=== PATIENT | female | born 1990 | race Caucasian/White ===

== ENCOUNTER 2020-05-06 15:00 | Observation (INO) | payer BC, OTHER ==
[2020-05-06 16:16] LABS: CHLORIDE,CL 94 mmol/L (98-107); SODIUM,NA 129 mmol/L (136-145)
[2020-05-06] MEDS ORDERED: Sodium Chloride 0.9% 10 ML Syringe FLUSH PRN (16:43)
[2020-05-06] MEDS ORDERED: oxyCODONE 5 MG Tab PO PRN (16:54)
--- NOTE | 2020-05-06 17:00 | PCM.HP.2 ---
<Neelam Houser - Last Filed: 05/06/20 16:55> H&P History of Present Illness - General Date of Service: 05/06/20 Admit Problem/Dx: Admission Diagnosis/Problem Admission Diagnosis/Problem Hyponatremia Source of Information: Patient, Other (CLINIC RECORDS) History Limitations: Reports: No Limitations - History of Present Illness Initial Comments - Free Text/Narative: Patient presented to the clinic this afternoon with complaints of right sided flank pain. Symptoms started Sunday evening with increased sweating and not feeling well. She had breast augmentation surgery on 04/22/20 and has been doing well. She had a post-op follow-up appointment and the the surgeon was pleased. She denies any redness, discharge or tenderness around the surgical incisions. Patient is worried that this could be sepsis. She denies any fever, vomiting or diarrhea. She has been drinking but her appetite is greatly decreased and she feels nauseated at times. The flank pain is intermittent. No personal history of kidney stones but her mom gets them. She is typically healthy. Quality: Reports: Sharp (right flank pain) - Related Data Home Medications: Home Meds Ibuprofen [Motrin] 800 mg PO TID PRN 05/06/20 [History] Past Medical History Neurological History: Reports: Migraines - Past Surgical History Female Surgical History: Reports: Breast Implant Social & Family History - Tobacco Use Smoking Status *Q: Former Smoker H&P Review of Systems - Review of Systems: Review Of Systems: See Below General: Reports: Chills, Malaise, Fatigue, Diaphoresis. Denies: Fever HEENT: Reports: No Symptoms Pulmonary: Reports: No Symptoms Cardiovascular: Reports: No Symptoms Gastrointestinal: Reports: Abdominal Pain, Decreased Appetite. Denies: Diarrhea Genitourinary: Reports: Hematuria, Flank Pain. Denies: Dysuria, Frequency, Burn ing, Pain Musculoskeletal: Reports: No Symptoms Skin: Reports: No Symptoms Psychiatric: Reports: No Symptoms Neurological: Reports: No Symptoms Hematologic/Lymphatic: Reports: No Symptoms Immunologic: Reports: No Symptoms Exam - Exam Exam: See Below - Exam General: Alert, Oriented, 4 HEENT: PERRLA, Hearing Intact, Mucosa Moist & [place], Nares Patent, Normal Nasal Septum, Posterior Pharynx Clear, Conjunctiva Clear, EOMI, EACs Clear, TMs Clear Neck: Supple, Trachea Midline, 2 Lungs: Clear to Auscultation, Normal Respiratory Effort Cardiovascular: Regular Rate, Regular Rhythm GI/Abdominal Exam: Normal Bowel Sounds, Soft, Tender (right sided) (Female) Exam: Deferred Rectal (Female) Exam: Deferred Back Exam: No: CVA Tenderness (L), CVA Tenderness (R) Extremities: Normal Inspection, Non-Tender, No Pedal Edema Skin: Incision (surgical breast incisions are without erythema, discharge or te nderness) Neurological: Cranial Nerves Intact, Reflexes Equal Bilateral Neuro Extensive - Mental Status: Alert, Oriented x3, Normal Mood/Affect, Normal Cognition Psychiatric: Alert, Normal Affect, Normal Mood - Patient Data Lab Results Last 24 hrs: Laboratory Results - last 24 hr 05/06/20 05/06/20 05/06/20 Range/Units 15:15 15:38 15:38 WBC 13.1 H (4.0-10.2) K/uL RBC 4.52 (3.77-5.09) M/uL Hgb 13.4 (11.7-15.5) g/dL Hct 39.7 (34.0-46.0) % MCV 87.8 (84.0-98.0) fL MCH 29.6 (28.2-33.3) pg MCHC 33.8 (31.7-36.0) g/dL RDW 13.0 (11.2-14.1) % Plt Count 47 L* (150-350) K/uL Neut % (Auto) 89.9 H (45.0-80.0) % Lymph % (Auto) 6.7 L (10.0-50.0) % [place] % (Auto) 2.5 (2.0-14.0) % Eos % (Auto) 0.7 (0.0-5.0) % Baso % (Auto) 0.2 (0.0-2.0) % Neut # (Auto) 11.78 H (1.40-7.00) K/uL Lymph # (Auto) 0.88 (0.50-3.50) K/uL Marshall # (Auto) 0.33 (0.00-1.00) K/uL Eos # (Auto) 0.09 (0.00-0.50) K/uL Baso # (Auto) 0.02 (0.00-0.20) K/uL Sodium 129 L (136-145) mmol/L Potassium 3.5 (3.5-5.1) mmol/L Chloride 94 L (98-107) mmol/L Carbon Dioxide 26.6 (21.0-32.0) mmol/L BUN 6 L (7-18) mg/dL Creatinine 0.66 (0.51-1.17) mg/dL Est Cr Clr Drug Dosing TNP Estimated GFR (MDRD) > 60 mL/min Glucose 89 (74-106) mg/dL Lactic Acid (0.4-2.0) mmol/L Calcium 9.1 (8.5-10.1) mg/dL Total Bilirubin 0.8 (0.2-1.0) mg/dL AST 29 (15-37) U/L ALT 21 (12-78) U/L Alkaline Phosphatase 81 (46-116) IU/L Total Protein 8.6 H (6.4-8.2) g/dL Albumin 3.6 (3.4-5.0) g/dL Specimen Type Urinvoid Urine Color Ambika Urine Appearance Cloudy Urine pH 6.0 (5.0-9.0) Ur Specific [place] >= 1.030 (1.005-1.030) Urine Protein >=300 H (NEGATIVE) mg/dL Urine Glucose (UA) Negative (NEGATIVE) mg/dL Urine Ketones 15 H (NEGATIVE) mg/dL Urine Occult Blood Large H (NEGATIVE) Urine Nitrite Negative (NEGATIVE) Urine Bilirubin Small H (NEGATIVE) Urine Urobilinogen 1.0 (0.2-1.0) E.U./dL Ur Leukocyte Esterase Negative (NEGATIVE) Urine RBC See note /HPF Urine WBC See note /HPF Ur Epithelial Cells Many H /LPF Urine Bacteria See note (NONE TO FEW) /HPF Urinalysis Comment Urine HCG, Qual 05/06/20 05/06/20 Range/Units 15:38 15:52 WBC (4.0-10.2) K/uL RBC (3.77-5.09) M/uL Hgb (11.7-15.5) g/dL Hct (34.0-46.0) % MCV (84.0-98.0) fL MCH (28.2-33.3) pg MCHC (31.7-36.0) g/dL RDW (11.2-14.1) % Plt Count (150-350) K/uL Neut % (Auto) (45.0-80.0) % Lymph % (Auto) (10.0-50.0) % Marshall % (Auto) (2.0-14.0) % Eos % (Auto) (0.0-5.0) % Baso % (Auto) (0.0-2.0) % Neut # (Auto) (1.40-7.00) K/uL Lymph # (Auto) (0.50-3.50) K/uL Marshall # (Auto) (0.00-1.00) K/uL Eos # (Auto) (0.00-0.50) K/uL Baso # (Auto) (0.00-0.20) K/uL Sodium (136-145) mmol/L Potassium (3.5-5.1) mmol/L Chloride (98-107) mmol/L Carbon Dioxide (21.0-32.0) mmol/L BUN (7-18) mg/dL Creatinine (0.51-1.17) mg/dL Est Cr Clr Drug Dosing Estimated GFR (MDRD) mL/min Glucose (74-106) mg/dL Lactic Acid 1.0 (0.4-2.0) mmol/L Calcium (8.5-10.1) mg/dL Total Bilirubin (0.2-1.0) mg/dL AST (15-37) U/L ALT (12-78) U/L Alkaline Phosphatase (46-116) IU/L Total Protein (6.4-8.2) g/dL Albumin (3.4-5.0) g/dL Specimen Type Urine Color Urine Appearance Urine pH (5.0-9.0) Ur Specific [place] (1.005-1.030) Urine Protein (NEGATIVE) mg/dL Urine Glucose (UA) (NEGATIVE) mg/dL Urine Ketones (NEGATIVE) mg/dL Urine Occult Blood (NEGATIVE) Urine Nitrite (NEGATIVE) Urine Bilirubin (NEGATIVE) Urine Urobilinogen (0.2-1.0) E.U./dL Ur Leukocyte Esterase (NEGATIVE) Urine RBC /HPF Urine WBC /HPF Ur Epithelial Cells /LPF Urine Bacteria (NONE TO FEW) /HPF Urinalysis Comment Urine HCG, Qual Negative Result Diagrams: 05/06/20 15:38 05/06/20 15:38 - Problem List (1) Hyponatremia SNOMED Code(s): 09080848 ICD Code: E87.1 - HYPO-OSMOLALITY AND HYPONATREMIA Status: Acute Priority: High Current Visit: Yes Problem Details: Patient being referred to observation for hypertonic solution at 40ml/hr to correct the sodium level. Will recheck labs in the morning and if corrected will infuse normal saline. (2) Right flank pain SNOMED Code(s): 198904974 ICD Code: R10.9 - UNSPECIFIED ABDOMINAL PAIN Status: Acute Priority: High Current Visit: Yes Problem Details: CT abd/pelvis without contrast ordered for 05/07/20 to rule out kidney stones Problem List Initiated/Reviewed/Updated: Yes Orders Last 24hrs: Active Orders 24 hr Category Date Time Status Patient Status [ADT] Routine ADT 05/06/20 16:43 Ordered May Shower [RC] ASDIRECTED Care 05/06/20 16:43 Ordered Oxygen Therapy [RC] PRN Care 05/06/20 16:43 Ordered Peripheral IV Care [RC] . DIRECTED Care 05/06/20 16:48 Ordered Up ad Wendi [RC] ASDIRECTED Care 05/06/20 16:43 Ordered VTE/DVT Education [RC] PER UNIT ROUTINE Care 05/06/20 16:43 Ordered Vital Signs [RC] Q4H Care 05/06/20 16:43 Ordered Regular Diet [DIET] Diet 05/06/20 Dinner Ordered Abdomen Pelvis wo Cont [CT] Routine Exams 05/07/20 05:11 Ordered BASIC METABOLIC PANEL,BMP [CHEM] Routine Lab 05/07/20 05:11 Ordered CBC WITH AUTO DIFF [HEME] Routine Lab 05/07/20 05:11 Ordered UA W/MICROSCOPIC [URIN] Routine Lab 05/06/20 16:43 Ordered Acetaminophen [TylenoL] Med 05/06/20 16:43 Ordered 650 mg PO Q4H PRN Ondansetron [Zofran ODT] Med 05/06/20 16:43 Ordered 4 mg PO Q6H PRN Sodium Chloride 0.9% [Saline Flush] Med 05/06/20 16:43 Ordered 10 ml FLUSH ASDIRECTED PRN Sodium Chloride 3% 500 ml Med 05/06/20 17:00 Ordered IV ASDIRECTED oxyCODONE Med 05/06/20 16:54 Ordered 5 mg PO Q6H PRN Peripheral IV Insertion Adult [OM.PC] Routine Oth 05/06/20 16:43 Ordered Resuscitation Status Routine Resus Stat 05/06/20 16:43 Ordered Medication Orders Acetaminophen (Tylenol) 650 mg PO Q4H PRN PRN Reason: Pain (Mild 1-3)/fever Sodium Chloride (Sodium Chloride 3%) 500 mls @ 40 mls/hr IV ASDIRECTED ANDREW Ondansetron HCl (Zofran Odt) 4 mg PO Q6H PRN PRN Reason: Nausea/Vomiting Sodium Chloride (Saline Flush) 10 ml FLUSH ASDIRECTED PRN PRN Reason: Keep Vein Open Assessment/Plan Comment:: Dr. Weiner called to discuss patient's case. Recommended admission to observation. She will be assuming care following admission. - Mortality Measure Prognosis:: Good <Jessica Wenier H - Last Filed: 05/06/20 19:41> H&P History of Present Illness - General Admit Problem/Dx: Admission Diagnosis/Problem Admission Diagnosis/Problem Hyponatremia Exam - Vital Signs Vital Signs: Last Vital Signs Temp 37.1 C 05/06/20 16:43 Pulse 101 H 05/06/20 16:43 Resp 18 05/06/20 16:43 BP 117/72 05/06/20 16:43 Pulse Ox 94 L 05/06/20 16:43 - Patient Data Lab Results Last 24 hrs: Laboratory Results - last 24 hr 05/06/20 05/06/20 05/06/20 Range/Units 15:15 15:38 15:38 WBC 13.1 H (4.0-10.2) K/uL RBC 4.52 (3.77-5.09) M/uL Hgb 13.4 (11.7-15.5) g/dL Hct 39.7 (34.0-46.0) % MCV 87.8 (84.0-98.0) fL MCH 29.6 (28.2-33.3) pg MCHC 33.8 (31.7-36.0) g/dL RDW 13.0 (11.2-14.1) % Plt Count 47 L* (150-350) K/uL Neut % (Auto) 89.9 H (45.0-80.0) % Lymph % (Auto) 6.7 L (10.0-50.0) % [place] % (Auto) 2.5 (2.0-14.0) % Eos % (Auto) 0.7 (0.0-5.0) % Baso % (Auto) 0.2 (0.0-2.0) % Neut # (Auto) 11.78 H (1.40-7.00) K/uL Lymph # (Auto) 0.88 (0.50-3.50) K/uL [place] # (Auto) 0.33 (0.00-1.00) K/uL Eos # (Auto) 0.09 (0.00-0.50) K/uL Baso # (Auto) 0.02 (0.00-0.20) K/uL Sodium 129 L (136-145) mmol/L Potassium 3.5 (3.5-5.1) mmol/L Chloride 94 L (98-107) mmol/L Carbon Dioxide 26.6 (21.0-32.0) mmol/L BUN 6 L (7-18) mg/dL Creatinine 0.66 (0.51-1.17) mg/dL Est Cr Clr Drug Dosing TNP Estimated GFR (MDRD) > 60 mL/min Glucose 89 (74-106) mg/dL Lactic Acid (0.4-2.0) mmol/L Calcium 9.1 (8.5-10.1) mg/dL Total Bilirubin 0.8 (0.2-1.0) mg/dL AST 29 (15-37) U/L ALT 21 (12-78) U/L Alkaline Phosphatase 81 (46-116) IU/L Total Protein 8.6 H (6.4-8.2) g/dL Albumin 3.6 (3.4-5.0) g/dL Specimen Type Urinvoid Urine Color Ambika Urine Appearance Cloudy Urine pH 6.0 (5.0-9.0) Ur Specific [place] >= 1.030 (1.005-1.030) Urine Protein >=300 H (NEGATIVE) mg/dL Urine Glucose (UA) Negative (NEGATIVE) mg/dL Urine Ketones 15 H (NEGATIVE) mg/dL Urine Occult Blood Large H (NEGATIVE) Urine Nitrite Negative (NEGATIVE) Urine Bilirubin Small H (NEGATIVE) Urine Urobilinogen 1.0 (0.2-1.0) E.U./dL Ur Leukocyte Esterase Negative (NEGATIVE) Urine RBC See note /HPF Urine WBC See note /HPF Ur Epithelial Cells Many H /LPF Urine Bacteria See note (NONE TO FEW) /HPF Urinalysis Comment Urine HCG, Qual 05/06/20 05/06/20 05/06/20 Range/Units 15:38 15:52 17:52 WBC (4.0-10.2) K/uL RBC (3.77-5.09) M/uL Hgb (11.7-15.5) g/dL Hct (34.0-46.0) % MCV (84.0-98.0) fL MCH (28.2-33.3) pg MCHC (31.7-36.0) g/dL RDW (11.2-14.1) % Plt Count (150-350) K/uL Neut % (Auto) (45.0-80.0) % Lymph % (Auto) (10.0-50.0) % [place] % (Auto) (2.0-14.0) % Eos % (Auto) (0.0-5.0) % Baso % (Auto) (0.0-2.0) % Neut # (Auto) (1.40-7.00) K/uL Lymph # (Auto) (0.50-3.50) K/uL [place] # (Auto) (0.00-1.00) K/uL Eos # (Auto) (0.00-0.50) K/uL Baso # (Auto) (0.00-0.20) K/uL Sodium (136-145) mmol/L Potassium (3.5-5.1) mmol/L Chloride (98-107) mmol/L Carbon Dioxide (21.0-32.0) mmol/L BUN (7-18) mg/dL Creatinine (0.51-1.17) mg/dL Est Cr Clr Drug Dosing Estimated GFR (MDRD) mL/min Glucose (74-106) mg/dL Lactic Acid 1.0 (0.4-2.0) mmol/L Calcium (8.5-10.1) mg/dL Total Bilirubin (0.2-1.0) mg/dL AST (15-37) U/L ALT (12-78) U/L Alkaline Phosphatase (46-116) IU/L Total Protein (6.4-8.2) g/dL Albumin (3.4-5.0) g/dL Specimen Type [place] Urine Color Yellow Urine Appearance Clear Urine pH 6.5 (5.0-9.0) Ur Specific [place] 1.010 (1.005-1.030) Urine Protein 30 H (NEGATIVE) mg/dL Urine Glucose (UA) Negative (NEGATIVE) mg/dL Urine Ketones 40 H (NEGATIVE) mg/dL Urine Occult Blood Moderate H (NEGATIVE) Urine Nitrite Negative (NEGATIVE) Urine Bilirubin Negative (NEGATIVE) Urine Urobilinogen 0.2 (0.2-1.0) E.U./dL Ur Leukocyte Esterase Negative (NEGATIVE) Urine RBC 5-10 H /HPF Urine WBC 0-5 /HPF Ur Epithelial Cells Few /LPF Urine Bacteria Few (NONE TO FEW) /HPF Urinalysis Comment Urine HCG, Qual Negative Result Diagrams: 05/06/20 15:38 05/06/20 15:38 Sepsis Event Note - Focused Exam Vital Signs: Vital Signs Temp Pulse Resp BP Pulse Ox Pulse Ox 05/06/20 16:43 37.1 C 101 H 18 117/72 94 L 94 L - Problem List (1) Thrombocytopenia SNOMED Code(s): 227064893 ICD Code: D69.6 - THROMBOCYTOPENIA, UNSPECIFIED Status: Acute Priority: Medium Current Visit: Yes Problem Details: Observe. May need further evaluation by hematology. Orders Last 24hrs: Active Orders 24 hr Category Date Time Status Patient Status [ADT] Routine ADT 05/06/20 16:43 Active May Shower [RC] ASDIRECTED Care 05/06/20 16:43 Active Oxygen Therapy [RC] .PRN Care 05/06/20 16:43 Active Up ad Wendi [RC] ASDIRECTED Care 05/06/20 16:43 Active Vital Signs [RC] Q4HR Care 05/06/20 16:43 Active Regular Diet [DIET] Diet 05/06/20 Dinner Active Abdomen Pelvis wo Cont [CT] Routine Exams 05/07/20 05:11 Ordered BASIC METABOLIC PANEL,BMP [CHEM] Routine Lab 05/07/20 05:11 Ordered CBC WITH AUTO DIFF [HEME] Routine Lab 05/07/20 05:11 Ordered Acetaminophen [TylenoL] Med 05/06/20 16:43 Active 650 mg PO Q4H PRN Ondansetron [Zofran ODT] Med 05/06/20 16:43 Active 4 mg PO Q6H PRN Sodium Chloride 0.9% [Saline Flush] Med 05/06/20 16:43 Active 10 ml FLUSH ASDIRECTED PRN Sodium Chloride 3% 500 ml Med 05/06/20 17:00 Active IV ASDIRECTED oxyCODONE Med 05/06/20 16:54 Active 5 mg PO Q6H PRN Peripheral IV Insertion Adult [OM.PC] Routine Oth 05/06/20 16:43 Ordered Resuscitation Status Routine Resus Stat 05/06/20 16:43 Ordered Medication Orders Acetaminophen (Tylenol) 650 mg PO Q4H PRN PRN Reason: Pain (Mild 1-3)/fever Sodium Chloride (Sodium Chloride 3%) 500 mls @ 40 mls/hr IV ASDIRECTED ANDREW Last Admin: 05/06/20 17:42 Dose: 40 mls/hr Documented by: COXTAM Ondansetron HCl (Zofran Odt) 4 mg PO Q6H PRN PRN Reason: Nausea/Vomiting Last Admin: 05/06/20 17:41 Dose: 4 mg Documented by: COXTAM Oxycodone HCl (Oxycodone) 5 mg PO Q6H PRN PRN Reason: RIGHT FLANK PAIN Sodium Chloride (Saline Flush) 10 ml FLUSH ASDIRECTED PRN PRN Reason: Keep Vein Open
[2020-05-06] MEDS: Ondansetron 4 MG Tab.DIS PO PRN (17:41)
[2020-05-06] MEDS: Sodium Chloride 3% 500 ML IV SCH (17:42)
[2020-05-06] MEDS: Acetaminophen 325 MG Tab PO PRN (20:22)
[2020-05-07] MEDS: Acetaminophen 325 MG Tab PO PRN ×2 (02:18→13:55)
[2020-05-07] MEDS: Ondansetron 4 MG Tab.DIS PO PRN (02:21)
[2020-05-07] MEDS: Sodium Chloride 3% 500 ML IV SCH (06:05)
[2020-05-07 08:00] LABS: CHLORIDE,CL 103 mmol/L (98-107); SODIUM,NA 137 mmol/L (136-145)
[2020-05-07] MEDS ORDERED: Sodium Chloride 0.9% 1,000 ML IV ONE (12:30)
--- NOTE | 2020-05-07 12:37 | PCM.DCSUM1 ---
Discharge Summary - Hospital Course Brief History: Patient admitted for further evaluation of flank pain Diagnosis: Stroke: No - Discharge Data Discharge Date: 05/07/20 Discharge Disposition: Home, Self-Care 01 Condition: Good - Referral to Home Health Primary Care Physician: Sydnie Colby PA-C - Discharge Diagnosis/Problem(s) (1) Right flank pain SNOMED Code(s): 946063751 ICD Code: R10.9 - UNSPECIFIED ABDOMINAL PAIN Status: Acute Priority: High Current Visit: Yes Problem Details: CT abd/pelvis without contrast ordered for 05/07/20 to rule out kidney stones noted no abnormalities other than ground glass changes in lower lung abreu consistent with patient's recent Covid infection. No chest pain complaint but may be contributing factor to the right upper flank pain complaint. Pain is much improved today. (2) Dehydration SNOMED Code(s): 98188107 ICD Code: E86.0 - DEHYDRATION Status: Acute Priority: Medium Current Visit: Yes Problem Details: IV fluid bolus ordered once sodium level co rrected. Patient eating/drinking well on own today. (3) Infection due to 2019-nCoV SNOMED Code(s): 539713589 ICD Code: U07.1 - COVID-19 Status: Acute Priority: Medium Current Visit: Yes Problem Details: Recent Covid 19 infection earlier in Apr. Was cleared from active infection prior to recent breast augmentation surgery. Patient continues to have mild sensation chest tightness at times. No worsening noted. Has had on/off sensation of feeling warm and getting sweats. CT of chest performed due to elevated DDimer and O2 sats noted in mid 90s. Diffuse patchy peripheral ground glass changes noted but negative for PE. White count did improve during course of stay. Will cover with course of Zithromax and Rx for albuterol MDI. (4) Thrombocytopenia SNOMED Code(s): 618282947 ICD Code: D69.6 - THROMBOCYTOPENIA, UNSPECIFIED Status: Acute Priority: Medium Current Visit: Yes Problem Details: Normalized level today (5) Hyponatremia SNOMED Code(s): 80574612 ICD Code: E87.1 - HYPO-OSMOLALITY AND HYPONATREMIA Status: Acute Priority: High Current Visit: Yes Problem Details: Level within normal limits today - Patient Summary/Data Hospital Course: Hypertonic saline IV given. Pain improved throughout stay and has been pain-free this morning. Nausea improved. CT abdomen to look for kidney stones negative for stones. However lower lung abreu showed ground glass appearance consistent with C-19 pneumonitis. Suspect persistent changes related to her Covid infection early Apr. - Patient Instructions Diet: Usual Diet as Tolerated Activity: As Tolerated Other/Special Instructions: Watch for changes. Follow up if you have any worsening symptoms such as increased shortness of breath or worsening fever! Stay hydrated. - Discharge Plan *PRESCRIPTION DRUG MONITORING PROGRAM REVIEWED*: Not Applicable *COPY OF PRESCRIPTION DRUG MONITORING REPORT IN PATIENT ROBI: Not Applicable Prescriptions/Med Rec: Albuterol Sulfate [Proair Hfa] 8.5 gm IH ASDIRECTED PRN #1 [email or web address] PRN Reason: Shortness Of Breath Azithromycin [Zithromax] 250 mg PO DAILY #6 tablet Home Medications: Home Meds Ibuprofen [Motrin] 800 mg PO TID PRN 05/06/20 [History] oxyCODONE HCl/Acetaminophen [Oxycodone-Acetaminophen 5-325] 1 tab PO Q6HR PRN 05/06/20 [History] Albuterol Sulfate [Proair Hfa] 8.5 gm IH ASDIRECTED PRN #1 hfa.[email or web address] 05/07/20 [Rx] Azithromycin [Zithromax] 250 mg PO DAILY #6 tablet 05/07/20 [Rx] - Discharge Summary/Plan Comment DC Time >30 min.: No - General Info Date of Service: 05/07/20 Admission Dx/Problem (Free Text: Admission Diagnosis/Problem Admission Diagnosis/Problem Hyponatremia Subjective Update: doing well. No pain. Would like to go home. Functional Status: Reports: Pain Controlled Numeric/FACES Score: 0 - Review of Systems General: Reports: Other (felt hot and sweaty at times) HEENT: Reports: No Symptoms Pulmonary: Reports: Shortness of Breath (sometimes feels like her chest is tight since Covid infection). Denies: Cough, Sputum, Hemoptysis, Wheezing Cardiovascular: Reports: No Symptoms Gastrointestinal: Reports: No Symptoms Genitourinary: Reports: Other (urine is darker in color per pt) Musculoskeletal: Reports: No Symptoms Skin: Reports: Other (incisions healing well ) Neurological: Reports: No Symptoms Psychiatric: Reports: No Symptoms - Patient Data Vitals - Most Recent: Last Vital Signs Temp 36.8 C 05/07/20 07:48 Pulse 82 05/07/20 07:48 Resp 14 05/07/20 07:48 BP 99/56 L 05/07/20 07:48 Pulse Ox 93 L 05/07/20 07:48 Weight - Most Recent: 67.132 kg I&O - Last 24 hours: Intake & Output 05/06/20 05/07/20 05/07/20 22:59 06:59 14:59 Intake Total 120 1092 240 Balance 120 1092 240 Lab Results - Last 24 hrs: Laboratory Results - last 24 hr 05/06/20 05/06/20 05/06/20 Range/Units 15:15 15:38 15:38 WBC 13.1 H (4.0-10.2) K/uL RBC 4.52 (3.77-5.09) M/uL Hgb 13.4 (11.7-15.5) g/dL Hct 39.7 (34.0-46.0) % MCV 87.8 (84.0-98.0) fL MCH 29.6 (28.2-33.3) pg MCHC 33.8 (31.7-36.0) g/dL RDW 13.0 (11.2-14.1) % Plt Count 47 L* (150-350) K/uL Neut % (Auto) 89.9 H (45.0-80.0) % Lymph % (Auto) 6.7 L (10.0-50.0) % Garza % (Auto) 2.5 (2.0-14.0) % Eos % (Auto) 0.7 (0.0-5.0) % Baso % (Auto) 0.2 (0.0-2.0) % Neut # (Auto) 11.78 H (1.40-7.00) K/uL Lymph # (Auto) 0.88 (0.50-3.50) K/uL Garza # (Auto) 0.33 (0.00-1.00) K/uL Eos # (Auto) 0.09 (0.00-0.50) K/uL Baso # (Auto) 0.02 (0.00-0.20) K/uL Sodium 129 L (136-145) mmol/L Potassium 3.5 (3.5-5.1) mmol/L Chloride 94 L (98-107) mmol/L Carbon Dioxide 26.6 (21.0-32.0) mmol/L BUN 6 L (7-18) mg/dL Creatinine 0.66 (0.51-1.17) mg/dL Est Cr Clr Drug Dosing TNP Estimated GFR (MDRD) > 60 mL/min Glucose 89 (74-106) mg/dL Lactic Acid (0.4-2.0) mmol/L Calcium 9.1 (8.5-10.1) mg/dL Total Bilirubin 0.8 (0.2-1.0) mg/dL AST 29 (15-37) U/L ALT 21 (12-78) U/L Alkaline Phosphatase 81 (46-116) IU/L Total Protein 8.6 H (6.4-8.2) g/dL Albumin 3.6 (3.4-5.0) g/dL Specimen Type Urinvoid Urine Color Ambika Urine Appearance Cloudy Urine pH 6.0 (5.0-9.0) Ur Specific [place] >= 1.030 (1.005-1.030) Urine Protein >=300 H (NEGATIVE) mg/dL Urine Glucose (UA) Negative (NEGATIVE) mg/dL Urine Ketones 15 H (NEGATIVE) mg/dL Urine Occult Blood Large H (NEGATIVE) Urine Nitrite Negative (NEGATIVE) Urine Bilirubin Small H (NEGATIVE) Urine Urobilinogen 1.0 (0.2-1.0) E.U./dL Ur Leukocyte Esterase Negative (NEGATIVE) Urine RBC See note /HPF Urine WBC See note /HPF Ur Epithelial Cells Many H /LPF Urine Bacteria See note (NONE TO FEW) /HPF Urinalysis Comment Urine HCG, Qual 05/06/20 05/06/20 05/06/20 Range/Units 15:38 15:52 17:52 WBC (4.0-10.2) K/uL RBC (3.77-5.09) M/uL Hgb (11.7-15.5) g/dL Hct (34.0-46.0) % MCV (84.0-98.0) fL MCH (28.2-33.3) pg MCHC (31.7-36.0) g/dL RDW (11.2-14.1) % Plt Count (150-350) K/uL Neut % (Auto) (45.0-80.0) % Lymph % (Auto) (10.0-50.0) % Garza % (Auto) (2.0-14.0) % Eos % (Auto) (0.0-5.0) % Baso % (Auto) (0.0-2.0) % Neut # (Auto) (1.40-7.00) K/uL Lymph # (Auto) (0.50-3.50) K/uL Garza # (Auto) (0.00-1.00) K/uL Eos # (Auto) (0.00-0.50) K/uL Baso # (Auto) (0.00-0.20) K/uL Sodium (136-145) mmol/L Potassium (3.5-5.1) mmol/L Chloride (98-107) mmol/L Carbon Dioxide (21.0-32.0) mmol/L BUN (7-18) mg/dL Creatinine (0.51-1.17) mg/dL Est Cr Clr Drug Dosing Estimated GFR (MDRD) mL/min Glucose (74-106) mg/dL Lactic Acid 1.0 (0.4-2.0) mmol/L Calcium (8.5-10.1) mg/dL Total Bilirubin (0.2-1.0) mg/dL AST (15-37) U/L ALT (12-78) U/L Alkaline Phosphatase (46-116) IU/L Total Protein (6.4-8.2) g/dL Albumin (3.4-5.0) g/dL Specimen Type Urincath Urine Color Yellow Urine Appearance Clear Urine pH 6.5 (5.0-9.0) Ur Specific [place] 1.010 (1.005-1.030) Urine Protein 30 H (NEGATIVE) mg/dL Urine Glucose (UA) Negative (NEGATIVE) mg/dL Urine Ketones 40 H (NEGATIVE) mg/dL Urine Occult Blood Moderate H (NEGATIVE) Urine Nitrite Negative (NEGATIVE) Urine Bilirubin Negative (NEGATIVE) Urine Urobilinogen 0.2 (0.2-1.0) E.U./dL Ur Leukocyte Esterase Negative (NEGATIVE) Urine RBC 5-10 H /HPF Urine WBC 0-5 /HPF Ur Epithelial Cells Few /LPF Urine Bacteria Few (NONE TO FEW) /HPF Urinalysis Comment Urine HCG, Qual Negative 05/07/20 05/07/20 Range/Units 07:15 07:15 WBC 11.2 H (4.0-10.2) K/uL RBC 3.87 (3.77-5.09) M/uL Hgb 11.4 L D (11.7-15.5) g/dL Hct 34.3 (34.0-46.0) % MCV 88.6 (84.0-98.0) fL MCH 29.5 (28.2-33.3) pg MCHC 33.2 (31.7-36.0) g/dL RDW 12.9 (11.2-14.1) % Plt Count 213 D (150-350) K/uL Neut % (Auto) 86.7 H (45.0-80.0) % Lymph % (Auto) 9.5 L (10.0-50.0) % Garza % (Auto) 2.4 (2.0-14.0) % Eos % (Auto) 1.2 (0.0-5.0) % Baso % (Auto) 0.2 (0.0-2.0) % Neut # (Auto) 9.69 H (1.40-7.00) K/uL Lymph # (Auto) 1.06 (0.50-3.50) K/uL Garza # (Auto) 0.27 (0.00-1.00) K/uL Eos # (Auto) 0.13 (0.00-0.50) K/uL Baso # (Auto) 0.02 (0.00-0.20) K/uL Sodium 137 (136-145) mmol/L Potassium 3.6 (3.5-5.1) mmol/L Chloride 103 (98-107) mmol/L Carbon Dioxide 26.1 (21.0-32.0) mmol/L BUN 4 L (7-18) mg/dL Creatinine 0.60 (0.51-1.17) mg/dL Est Cr Clr Drug Dosing 112.38 Estimated GFR (MDRD) > 60 mL/min Glucose 103 (74-106) mg/dL Lactic Acid (0.4-2.0) mmol/L Calcium 8.6 (8.5-10.1) mg/dL Total Bilirubin (0.2-1.0) mg/dL AST (15-37) U/L ALT (12-78) U/L Alkaline Phosphatase (46-116) IU/L Total Protein (6.4-8.2) g/dL Albumin (3.4-5.0) g/dL Specimen Type Urine Color Urine Appearance Urine pH (5.0-9.0) Ur Specific [place] (1.005-1.030) Urine Protein (NEGATIVE) mg/dL Urine Glucose (UA) (NEGATIVE) mg/dL Urine Ketones (NEGATIVE) mg/dL Urine Occult Blood (NEGATIVE) Urine Nitrite (NEGATIVE) Urine Bilirubin (NEGATIVE) Urine Urobilinogen (0.2-1.0) E.U./dL Ur Leukocyte Esterase (NEGATIVE) Urine RBC /HPF Urine WBC /HPF Ur Epithelial Cells /LPF Urine Bacteria (NONE TO FEW) /HPF Urinalysis Comment Urine HCG, Qual Med Orders - Current: Current Medications Acetaminophen (Tylenol) 650 mg PO Q4H PRN PRN Reason: Pain (Mild 1-3)/fever Last Admin: 05/07/20 02:18 Dose: 650 mg Documented by: Sodium Chloride (Sodium Chloride 3%) 500 mls @ 40 mls/hr IV ASDIRECTED [facility] Last Admin: 05/07/20 06:05 Dose: 40 mls/hr Documented by: Sodium Chloride (Normal Saline) 1,000 mls @ 999 mls/hr IV .BOLUS ONE Stop: 05/07/20 13:30 Ondansetron HCl (Zofran Odt) 4 mg PO Q6H PRN PRN Reason: Nausea/Vomiting Last Admin: 05/07/20 02:21 Dose: 4 mg Documented by: Oxycodone HCl (Oxycodone) 5 mg PO Q6H PRN PRN Reason: RIGHT FLANK PAIN Sodium Chloride (Saline Flush) 10 ml FLUSH ASDIRECTED PRN PRN Reason: Keep Vein Open - Exam General: Reports: Alert, Oriented, Cooperative, No Acute Distress HEENT: Reports: Pupils Equal, Pupils Reactive, EOMI, Mucous Membr. Moist/[place] Neck: Reports: Supple Lungs: Reports: Clear to Auscultation, Normal Respiratory Effort Cardiovascular: Reports: Regular Rate, Regular Rhythm GI/Abdominal Exam: Normal Bowel Sounds, Soft, Non-Tender, No Distention (Female) Exam: Deferred Rectal (Female) Exam: Deferred Back Exam: Denies: CVA Tenderness (L), CVA Tenderness (R), Muscle Spasm Extremities: Non-Tender, Slow Capillary Refill (3 sec) Skin: Reports: Warm, Dry Wound/Incisions: Reports: Healing Well Neurological: Reports: No New Focal Deficit Psy/Mental Status: Reports: Alert, Normal Affect, Normal Mood
[2020-05-07] MEDS ORDERED: Iopamidol 755 Mg/ML 100 ML Bottle IVPUSH ONE (13:00)
[2020-05-07] MEDS ORDERED: Sodium Chloride 0.9% 10 ML Syringe FLUSH PRN (13:47)
[2020-05-07] MEDS ORDERED: Iopamidol 755 Mg/ML 100 ML Bottle ONE (13:50)
== END 2020-05-07 16:58 | disposition home or self-care (01) ==
LOC: LL.CLIN 15:00 → LL.MS 16:43
PROVIDERS: ADMIT Nurse Practitioner Family; ATTEND Emergency Medicine
DX: R10.11 Right upper quadrant pain (principal); E87.1 Hypo-osmolality and hyponatremia; U07.1 COVID-19; D69.6 Thrombocytopenia, unspecified; E86.0 Dehydration; Z87.891 Personal history of nicotine dependence
CPT/HCPCS: 36415; 71275; 74176; 80048; 80053; 81001; 81025; 83605; 85025; 85379; 96360; 96361; 99217; 99219; A9270-GY; G0378; G0379; J7030; J7040; Q9967